=== PATIENT | male | born 1945 | race African-American/Black ===

== ENCOUNTER 2023-10-08 16:40 | Emergency (ER) | payer OTHER ==
[2023-10-08 16:56] VITALS: BP 155/93; PULSE 74; RESP 16; TEMP 98.4; BMI 25.0
[2023-10-08] MEDS ORDERED: ACETAMINOPHEN/CAFFEINE/BUTALBITAL 1 TAB ONE (18:11)
[2023-10-08] MEDS: ACETAMINOPHEN/CAFFEINE/BUTALBITAL 1 TAB PO ONE (18:16)
== END 2023-10-08 18:16 | disposition home or self-care (01) ==
LOC: JER 16:40
DX: R51.9 Headache, unspecified (principal); M54.50 Low back pain, unspecified; M25.511 Pain in right shoulder; V49.40XA Driver injured in collision with unspecified motor vehicles in traffic accident, initial encounter; Y92.481 Parking lot as the place of occurrence of the external cause
CPT/HCPCS: 99283-25